=== PATIENT | male | born 1965 | race Caucasian/White ===

== ENCOUNTER 2016-12-14 22:49 | Emergency (ER) | payer MEDICAID ==
[~2016-12-14] VITALS: Ht 180.3 cm; Wt 95.5 kg
[2016-12-15] MEDS ORDERED: KETOROLAC 30MG/ML VIAL IV ONE (03:00)
[2016-12-15 06:00] VITALS: BP 146/89
== END 2016-12-15 06:00 | disposition home or self-care (01) ==
LOC: ER 22:50
DX: M25.572 Pain in left ankle and joints of left foot (principal)
CPT/HCPCS: 73610; 96374; 99284; J1885

== ENCOUNTER 2016-12-29 18:06 | Emergency (ER) | payer MEDICAID ==
[~2016-12-29] VITALS: Ht 182.9 cm; Wt 100.0 kg
[2016-12-29 18:09] VITALS: BP 174/94
== END 2016-12-29 22:11 | disposition left against medical advice (07) ==
LOC: ER 18:06
DX: Z53.21 Procedure and treatment not carried out due to patient leaving prior to being seen by health care provider (principal)

== ENCOUNTER 2018-09-04 21:07 | Emergency (ER) | payer SELFPAY ==
[~2018-09-04] VITALS: Ht 180.3 cm; Wt 100.0 kg
[2018-09-04] MEDS ORDERED: ASPIRIN 81MG TABLET PO ONE (21:30)
[2018-09-04] MEDS ORDERED: KETOROLAC 15MG/ML VIAL IV ONE (21:45)
[2018-09-04 21:51] VITALS: BP 185/110
== END 2018-09-04 22:23 | disposition left against medical advice (07) ==
LOC: ER 21:07
DX: R07.89 Other chest pain (principal); I10 Essential (primary) hypertension; R51 Headache
CPT/HCPCS: 71045; 93005; 96374; 99283; J1885